=== PATIENT | female | born 2000 | race Caucasian/White ===

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

== ENCOUNTER 2018-01-31 10:31 | Emergency (ER) | payer OTHER, MEDICAID ==
[~2018-01-31] VITALS: Ht 147.3 cm; Wt 54.4 kg
[2018-01-31 10:41] VITALS: Ht 147.3 cm; Wt 54.4 kg
[2018-01-31 11:33] LABS: microscopic required? NO
[2018-01-31 12:06] LABS: urine erythrocyte NEGATIVE (NEGATIVE)
[2018-01-31 12:26] LABS: BASOPHIL % 0.3 % (0-2); PLATELET COUNT 352 x10^3mcL (130-400); RED CELL DISTRIBUTION WIDTH 12.7 % (11.5-14.5)
[2018-01-31 12:39] LABS: CALCIUM 9.2 mg/dL (8.5-10.1); CARBON DIOXIDE 29.1 mmol/L (21-32); CHLORIDE SERUM 106 mmol/L (98-107); CREATININE SERUM 0.6 mg/dL (0.6-1.0); GFR1 > 60 mL/min; GLUCOSE SERUM 219 mg/dL (74-106); POTASSIUM SERUM 3.6 mmol/L (3.5-5.1); SODIUM SERUM 143 mmol/L (136-145)
[2018-01-31 12:43] LABS: ALBUMIN 3.1 g/dL (3.4-5.0); ALKALINE PHOSPHATASE 120 U/L (46-116); ALT/SGPT 40 U/L (14-59); AST/SGOT 43 U/L (15-37); BILIRUBIN TOTAL 0.26 mg/dL (0.20-1.00); TOTAL PROTEIN, SERUM 7.8 g/dL (6.4-8.2)
[2018-01-31 13:06] VITALS: BP 102/65
== END 2018-01-31 13:06 | disposition home or self-care (01) ==
LOC: ED 10:31
PROVIDERS: Specialist
DX: E11.65 Type 2 diabetes mellitus with hyperglycemia (principal); Z88.8 Allergy status to other drugs, medicaments and biological substances
CPT/HCPCS: 82962; J7030; Q0092

== ENCOUNTER 2018-04-04 06:54 | Emergency (ER) | payer OTHER, MEDICAID ==
[~2018-04-04] VITALS: Ht 160 cm; Wt 43.1 kg
[2018-04-04 06:59] VITALS: BP 114/70; Ht 160 cm; Wt 43.1 kg
== END 2018-04-04 09:19 | disposition home or self-care (01) ==
LOC: ED 06:54
DX: Z46.59 Encounter for fitting and adjustment of other gastrointestinal appliance and device (principal); E11.9 Type 2 diabetes mellitus without complications; G80.9 Cerebral palsy, unspecified; Z88.8 Allergy status to other drugs, medicaments and biological substances
CPT/HCPCS: Q0092; Q9966

== ENCOUNTER 2018-04-05 13:43 | Emergency (ER) | payer OTHER, MEDICAID ==
[2018-04-05 14:50] VITALS: BP 118/85
== END 2018-04-05 14:50 | disposition home or self-care (01) ==
LOC: ED 13:43
DX: Z46.59 Encounter for fitting and adjustment of other gastrointestinal appliance and device (principal); E11.9 Type 2 diabetes mellitus without complications; G80.8 Other cerebral palsy; Z98.890 Other specified postprocedural states; Z88.8 Allergy status to other drugs, medicaments and biological substances

== ENCOUNTER 2019-05-26 06:58 | Emergency (ER) | payer OTHER, MEDICAID ==
[2019-05-26 07:05] VITALS: BP 108/62
== END 2019-05-26 09:19 | disposition home or self-care (01) ==
LOC: ED 06:58
DX: Z46.59 Encounter for fitting and adjustment of other gastrointestinal appliance and device (principal); G80.9 Cerebral palsy, unspecified; F79 Unspecified intellectual disabilities; G40.909 Epilepsy, unspecified, not intractable, without status epilepticus
CPT/HCPCS: Q0092; Q9967

== ENCOUNTER 2019-06-07 07:06 | Emergency (ER) | payer OTHER, MEDICAID ==
[~2019-06-07] VITALS: Ht 160 cm; Wt 46.3 kg
[2019-06-07 07:24] VITALS: BP 108/75; Ht 160 cm; Wt 46.3 kg
== END 2019-06-07 09:29 | disposition home or self-care (01) ==
LOC: ED 07:06
DX: T85.528A Displacement of other gastrointestinal prosthetic devices, implants and grafts, initial encounter (principal); E11.9 Type 2 diabetes mellitus without complications; Y92.89 Other specified places as the place of occurrence of the external cause
CPT/HCPCS: Q0092; Q9967

== ENCOUNTER 2019-06-10 17:30 | Emergency (ER) | payer OTHER, MEDICAID ==
[~2019-06-10] VITALS: Ht 160 cm; Wt 47.6 kg
[2019-06-10 17:58] VITALS: BP 101/667; Ht 160 cm; Wt 47.6 kg
== END 2019-06-10 21:05 | disposition home or self-care (01) ==
LOC: ED 17:30
DX: Z46.59 Encounter for fitting and adjustment of other gastrointestinal appliance and device (principal); E11.9 Type 2 diabetes mellitus without complications; G80.9 Cerebral palsy, unspecified; Z88.8 Allergy status to other drugs, medicaments and biological substances
CPT/HCPCS: Q0092